=== PATIENT | female | born 1995 | race Caucasian/White ===

== ENCOUNTER 2022-09-29 12:46 | Observation (INO) ==
[2022-09-29 13:37] LABS: Basophils # (auto) 0.04 K/uL (0-0.2); Basophils % (auto) 0.5 %; Eosinophils # (auto) 0.09 K/uL (0-0.50); Eosinophils % (auto) 1.1 %; Hematocrit (blood only) 38.6 % (37.0-47.0); Hemoglobin 12.9 g/dl (12.0-16.0); Immature Granulocytes # (auto) 0.03 K/uL (0.01-0.20); Immature Granulocytes % (auto) 0.4 %; Lymphocytes # (auto) 2.29 K/uL (1.2-3.4); Lymphocytes % (auto) 28.2 %; Mean Corpuscular Hgb Conc 33.4 g/dL (32.0-36.0); Mean Corpuscular Volume 77.7 fL (80.0-100.0); Mean Platelet Volume 10.5 fL (9.4-12.4); Monocytes # (auto) 0.66 K/uL (0.11-0.59); Monocytes % (auto) 8.1 %; Neutrophils % (auto) 61.7 %; Platelet Count 224 K/uL (130-400); RDW Coefficient of Variation 13.1 % (11.5-14.5); RDW Standard Deviation 36.9 fL (36.4-46.3); Red Blood Count 4.97 M/uL (4.20-5.40); White Blood Count 8.11 K/ul (4.8-10.8)
[2022-09-29 13:54] LABS: Albumin Globulin Ratio 1.4 (0.9-2); Albumin Level 4.2 gm/dl (3.4-5.0); BUN Creatinine Ratio 9.7 (10-20); Bilirubin,Total 0.5 mg/dl (0.2-1.0); Calcium 9.2 mg/dl (8.6-10.3); Creatinine Clr Calc Pharmacy 124.6 ml/min; Est GFR (African American) 145.3 ml/min; Est GFR (Non-African American) 125.3 ml/min; Potassium 4.1 mmol/L (3.5-5.1); Total Protein 7.2 gm/dl (6.0-8.3)
--- NOTE | 2022-09-29 14:51 | Emergency Department Note ---
Impression & Plan Acute cholecystitis ADMIT ED Provider Note HPI: The patient is a 27-year-old female who presents emergency department with a chief complaint of epigastric abdominal pain that radiates to her back. Patient states she was seen here in the ED yesterday, ultimately diagnosed with acute cholecystitis following CT imaging, patient states she was evaluated by general surgery, Dr. Barbosa, declined surgery at that time and stated that she needed to speak to her professors about missing certain exams before she was admitted to the hospital. Patient tells me she did this overnight and continues to have discomfort therefore she checked in today for evaluation for surgery. On arrival here to the ED the patient is hemodynamically stable, she is in no acute distress on my initial assessment. ROS: - Per HPI *Outpatient medications and allergy history reviewed. *Pertinent external medical records reviewed. PE: General: Alert HEENT: Normocephalic, trachea midline Eyes: Extraocular eye movement is intact, no scleral erythema Pulmonary: Clear to auscultation bilaterally, no wheezing Cardio: Regular rate and rhythm GI: Abdomen is soft to palpation, there is tenderness in the epigastrium and right upper quadrant on palpation : No suprapubic tenderness MSK: No evidence of trauma or malformation of the extremities, no edema Skin: No evidence of rash Neuro: Alert, no focal deficits Psychiatric: Cooperative quality technician: (As interpreted by myself): - An order was placed for continuous cardiac monitoring - Patient was noted to be in sinus rhythm with a rate of 80 Differential Diagnosis: Acute cholecystitis, gastroenteritis, peptic ulcer, a cute gastritis, acute pancreatitis, amongst other potential pathologies. Medical Decision Making: Patient presented to the emergency department for reevaluation a day after being diagnosed with acute cholecystitis. Lab work was obtained and reviewed, no transaminitis, bilirubin is within normal limits. Patient does have tenderness on my exam, CT imaging from yesterday was reviewed and did show concerning findings for acute cholecystitis. I discussed the case with the on-call surgery midlevel provider, Vanessa Huber, and the patient was evaluated at the bedside. Determination was made to take the patient to the operating room and patient agreed. Patient was transferred to the operating room in stable condition under the service of Dr. Haresh Villasenor for operative management of acute cholecystitis and definitive care. Consultants: General surgery, Dr. Villasenor Diagnosis: 1. Acute cholecystitis 2. Abdominal pain, acute Disposition: Admission to General surgery Bo Douglass DO Emergency Medicine Past Med/Surg History Social History Smoking Status: Never smoker Second Hand Exposure: No; Do You Dip or Chew Tobacco: No; Tobacco Cessation Education Requested by Patient: No Hx Alcohol Use: No Hx Substance Use: No Preferred Language: Amharic Communication Ability: Effective Crew Truck Driver Required: No Beliefs That Will Affect Care: None Current Living Situation: Spouse Other Information That Helps Us Care for You: No Feels Safe at Home: Yes Safety Concerns: Feels Safe At This Time Allergies Allergies Allergy/AdvReac Type Severity Reaction Status Date / Time No Known Allergies Allergy Unverified 09/28/22 08:21 Home Meds Home Medications Medication Instructions Recorded Confirmed No Known Home Medications 09/28/22 09/28/22 Results & Data (ED) Vital Signs Vital Signs - 24 hr 09/29/22 12:57 09/29/22 15:55 Temperature 36.6 C 37 C Temperature Source Temporal Artery Scan Oral Pulse Rate 89 Pulse Rate [Apical] 69 Respiratory Rate 20 20 Respiratory Effort / Characteristics Non-Labored Spontaneous Non-Labored Spontaneous Respiratory Depth Normal Normal Respiratory Pattern Regular Blood Pressure 118/81 Blood Pressure [Right Arm] 118/63 Blood Pressure Mean 93 Blood Pressure Mean [Right Arm] 81 Blood Pressure Position [Right Arm] Lying Pulse Oximetry 100 100 Oxygen Delivery Method Room Air Room Air Sepsis New/Unexplained Change in Mental Status N/A Sepsis Action Taken by Nursing No Action Required Laboratory Data 09/29/22 13:11 09/29/22 13:11 Lab Results 09/29/22 09/29/22 09/29/22 Range/Units 13:11 13:11 14:45 WBC 8.11 (4.8-10.8) K/ul RBC 4.97 (4.20-5.40) M/uL Hgb 12.9 (12.0-16.0) g/dl Hct 38.6 (37.0-47.0) % MCV 77.7 L (80.0-100.0) fL MCH 26.0 (25.0-34.0) pg MCHC 33.4 (32.0-36.0) g/dL RDW Std Deviation 36.9 (36.4-46.3) fL RDW Coeff of [place] 13.1 (11.5-14.5) % Plt Count 224 (130-400) K/uL MPV 10.5 (9.4-12.4) fL Immature Gran % (Auto) 0.4 % Neut % (Auto) 61.7 % Lymph % (Auto) 28.2 % [place] % (Auto) 8.1 % Eos % (Auto) 1.1 % Baso % (Auto) 0.5 % Neut # (Auto) 5.00 (1.40-6.50) K/uL Lymph # (Auto) 2.29 (1.2-3.4) K/uL [place] # (Auto) 0.66 H (0.11-0.59) K/uL Eos # (Auto) 0.09 (0-0.50) K/uL Baso # (Auto) 0.04 (0-0.2) K/uL Immature Gran # (Auto) 0.03 (0.01-0.20) K/uL Sodium 136 (136-145) mmol/L Potassium 4.1 (3.5-5.1) mmol/L Chloride 105 (98-107) mmol/L Carbon Dioxide 24 (21-32) mmol/L Anion Gap 7 (3-11) BUN 6 (6-23) mg/dl Creatinine 0.62 (0.6-1.2) mg/dl Est Cr Clr Drug Dosing 124.6 ml/min Est GFR ( Amer) 145.3 ml/min Est GFR (Non-Af Amer) 125.3 ml/min BUN/Creatinine Ratio 9.7 L (10-20) Glucose 89 (70-99(Fasting)) mg/dl Calcium 9.2 (8.6-10.3) mg/dl Total Bilirubin 0.5 (0.2-1.0) mg/dl AST 15 (13-39) U/L ALT 11 (7-52) U/L Alkaline Phosphatase 61 (34-104) U/L Total Protein 7.2 (6.0-8.3) gm/dl Albumin 4.2 (3.4-5.0) gm/dl Globulin 3.0 (2.5-4.0) gm/dl Albumin/Globulin Ratio 1.4 (0.9-2) Lipase 24 (11-82) U/L Urine Color Yellow Urine Appearance Clear (Clear) Urine pH 7.0 (4.5-7.5) Ur Specific [place] 1.017 (1.000-1.030) Urine Protein Negative (Negative) Urine Glucose (UA) Negative (Negative) Urine Ketones Trace H (Negative) Urine Blood Negative (Negative) Urine Nitrite Negative (Negative) Urine Bilirubin Negative (Negative) Urine Urobilinogen Negative (Negative) Ur Leukocyte Esterase Trace H (Negative) Urine WBC (Auto) 1-5 (0-5) /hpf Urine RBC (Auto) 0-4 (0-4) /hpf U Hyaline Cast (Auto) 1-5 (0-5) /lpf U Epithel Cells (Auto) >30 H (0-5) /lpf Urine Bacteria (Auto) 1+ H (Negative) Urine Test (Negative) SARS-CoV-2, RNA, NAAT (NEGATIVE) 09/29/22 09/29/22 Range/Units 14:55 15:02 WBC (4.8-10.8) K/ul RBC (4.20-5.40) M/uL Hgb (12.0-16.0) g/dl Hct (37.0-47.0) % MCV (80.0-100.0) fL MCH (25.0-34.0) pg MCHC (32.0-36.0) g/dL RDW Std Deviation (36.4-46.3) fL RDW Coeff of [place] (11.5-14.5) % Plt Count (130-400) K/uL MPV (9.4-12.4) fL Immature Gran % (Auto) % Neut % (Auto) % Lymph % (Auto) % [place] % (Auto) % Eos % (Auto) % Baso % (Auto) % Neut # (Auto) (1.40-6.50) K/uL Lymph # (Auto) (1.2-3.4) K/uL [place] # (Auto) (0.11-0.59) K/uL Eos # (Auto) (0-0.50) K/uL Baso # (Auto) (0-0.2) K/uL Immature Gran # (Auto) (0.01-0.20) K/uL Sodium (136-145) mmol/L Potassium (3.5-5.1) mmol/L Chloride (98-107) mmol/L Carbon Dioxide (21-32) mmol/L Anion Gap (3-11) BUN (6-23) mg/dl Creatinine (0.6-1.2) mg/dl Est Cr Clr Drug Dosing ml/min Est GFR ( Amer) ml/min Est GFR (Non-Af Amer) ml/min BUN/Creatinine Ratio (10-20) Glucose (70-99(Fasting)) mg/dl Calcium (8.6-10.3) mg/dl Total Bilirubin (0.2-1.0) mg/dl AST (13-39) U/L ALT (7-52) U/L Alkaline Phosphatase (34-104) U/L Total Protein (6.0-8.3) gm/dl Albumin (3.4-5.0) gm/dl Globulin (2.5-4.0) gm/dl Albumin/Globulin Ratio (0.9-2) Lipase (11-82) U/L Urine Color Urine Appearance (Clear) Urine pH (4.5-7.5) Ur Specific [place] (1.000-1.030) Urine Protein (Negative) Urine Glucose (UA) (Negative) Urine Ketones (Negative) Urine Blood (Negative) Urine Nitrite (Negative) Urine Bilirubin (Negative) Urine Urobilinogen (Negative) Ur Leukocyte Esterase (Negative) Urine WBC (Auto) (0-5) /hpf Urine RBC (Auto) (0-4) /hpf U Hyaline Cast (Auto) (0-5) /lpf U Epithel Cells (Auto) (0-5) /lpf Urine Bacteria (Auto) (Negative) Urine Test Negative (Negative) SARS-CoV-2, RNA, NAAT NEGATIVE (NEGATIVE) Administered Medications Fentanyl Citrate (Fentanyl Citrate Pf 100 Mcg/2 Ml Vial) 25 mcg IV Q5M PRN PRN Reason: PACU Use Only-Pain Stop: 09/30/22 00:01 Last Admin: 09/29/22 17:42 Dose: 25 mcg Documented By: Admin: 09/29/22 17:36 Dose: 25 mcg Documented By: Admin: 09/29/22 17:31 Dose: 25 mcg Documented By: EV Discontinued Medications Bupivacaine HCl (Bupivacaine 0.5 % 5 Mg/1 Ml Mpf 30ml Vial) Confirm Administered Dose 30 ml .ROUTE .STK-MED ONE Stop: 09/29/22 15:57 Last Admin: 09/29/22 16:47 Dose: Not Given Documented By: AFSHAN Bupivacaine HCl/Epinephrine Bitart (Bupivacaine/Epinephrine 0.25% 1:200,000 30 Ml Vial) Confirm Administered Dose 30 ml .ROUTE .STK-MED ONE Stop: 09/29/22 16:03 Last Admin: 09/29/22 17:00 Dose: 30 ml Documented By: SM Cefazolin Sodium (Ancef 2000mg) 2,000 mg in 15 mls @ 3.75 mls/min IV PREOP ONE; Protocol Stop: 09/29/22 15:48 Last Admin: 09/29/22 16:16 Dose: 3.75 mls/min Documented By: [id number] Cefazolin Sodium (Ancef 2000mg) 2,000 mg in 15 mls @ 3.75 mls/min IV PREOP ONE; Protocol Stop: 09/29/22 16:33 Last Admin: 09/29/22 16:21 Dose: Not Given Documented By: GEOVANNY Discharge Plan Visit Data Chief Complaint: Abdominal Pain Stated Complaint: ABDOMINAL PAIN, KIDNEY STONES ED Provider: Bo Douglass Discharge Problem: Acute cholecystitis Discharge Instructions Interventions: ED Discharge Assessment Last Done: 09/29/22 15:42
[2022-09-29 15:11] LABS: Appearance Urine Clear (Clear); Bacteria Urine Automated 1+ (Negative); Bilirubin Urine Negative (Negative); Blood Urine Negative (Negative); Color Urine Yellow; Epithelial Cell Urine Auto >30 /lpf (0-5); Glucose Urine UA Negative (Negative); Ketones Urine Trace (Negative); Leukocyte Esterase Urine Trace (Negative); Nitrite Urine Negative (Negative); Protein Urine Negative (Negative); RBC Urine Automated 0-4 /hpf (0-4); Specific Gravity Urine 1.017 (1.000-1.030); Urobilinogen Urine Negative (Negative)
[2022-09-29] MEDS ORDERED: PROPOFOL IV EMULSION 10 MG/ML 20 ML VIAL IV ONE (15:37)
[2022-09-29] MEDS ORDERED: fentaNYL citrate PF 100 MCG/2 ML VIAL ONE (15:37)
[2022-09-29] MEDS ORDERED: LIDOCAINE 2% MPF LOCAL 5 ML VIAL ONE (15:37)
[2022-09-29] MEDS ORDERED: MIDAZOLAM HCL 1 MG/ML 2ML VIAL ONE (15:37)
[2022-09-29] MEDS ORDERED: ROCURONIUM BROMIDE 10 MG/ML 5 ML VIAL IV ONE (15:37)
[2022-09-29] MEDS ORDERED: ceFAZolin 2000MG 2,000 MG/15 ML SYR IV ONE ×2 (15:45→16:30)
--- NOTE | 2022-09-29 15:49 | History & Physical Report ---
Date of Service September 29, 2022 Assessment & Plan (1) Acute cholecystitis due to biliary calculus: Plan: 27-year-old female who initially presented to the emergency room yesterday with complaint of abdominal pain with associated generalized illness of body aches, chills, nausea, vomiting. CT scan with gallstone in neck of gallbladder with signs of early acute cholecystitis. Normal wbc, t. bili and lfts. Abdominal pain still present and not improving which prompted ER evaluation again. Plan: Given imaging and exam findings, again recommended proceeding with laparoscopic cholecystectomy. Discussed procedure, risks of procedure and expected recovery time. Will plan to proceed with laparoscopic cholecystomy today at earliest convenience. Will sign consent in preop Keep NPO 2 gms cefoxitin preop likely stay overnight med/surg (2) Viral syndrome: Plan Discussed with Dr. Villasenor who will evaluate patient in preop, obtain consent for surgery History of Present Illness Chief Complaint: abdominal pain Primary Care Provider: [facility] Tomeka is a 27-year-old otherwise healthy female who initially presented to the emergency room yesterday with complaint of abdominal pain that started on Thursday along with generalized aches, chills, sweats. She had a CT scan of the abdomen and pelvis which showed a gallstone in the neck of the gallbladder with signs of early acute cholecystitis. She was evaluated by Dr. Christiana Barbosa in the emergency room yesterday who recommended laparoscopic cholecystectomy however patient elected to not proceed with surgery and left the emergency room AMA last evening. She again presented to the emergency room this morning with increasing abdominal pain last evening with associated nausea but no vomiting. She is still having some generalized aches and sore throat. Her labs show no leukocytosis and liver enzymes and total bilirubin are within normal limits. She states her pain was severe this morning and took an oral pain medication but has not had anything since. She states she actually has somewhat of an appetite at this time. Denies of any difficulty urinating or blood in the urine. Allergies Allergy/AdvReac Type Severity Reaction Status Date / Time No Known Allergies Allergy Unverified 09/28/22 08:21 Home Medications Medication Instructions Recorded Confirmed Type No Known Home Medications 09/28/22 09/28/22 History Past Med/Surg History Social History Smoking Status: Never smoker Hx Alcohol Use: No Hx Substance Use: No Preferred Language: French Feels Safe at Home: Yes Review of Systems Review of Systems: All systems reviewed & are unremarkable except as noted in HPI & below Physical Exam Constitutional: WD/WN, vitals as above cooperative and comfortable; no acute distress and not ill appearing Neck: normal visual inspection and trachea midline Respiratory: normal respiratory effort, lungs clear to auscultation Cardiovascular: RRR, no murmur, no edema Gastrointestinal (Abdomen): Inspection/Auscultation: abdomen normal to inspection and + hypoactive bowel sounds; abdomen not distended and + abnormal bowel sounds Percussion/Palpation: + abdomen tender (Right upper quadrant) and abdomen soft; no guarding and abdomen not rigid Skin: no rashes, warm and dry no jaundice Psychiatric: Orientation: alert and oriented x 3 Results & Data Results & Data Vital Signs (Past 12 Hours) Vital Signs Temp Pulse Resp BP Pulse Ox O2 Del Method 09/29/22 12:57 36.6 C 89 20 118/81 100 Room Air Laboratory Results 09/29/22 09/29/22 09/29/22 Range/Units 15:02 14:45 13:11 WBC (4.8-10.8) K/ul RBC (4.20-5.40) M/uL Hgb (12.0-16.0) g/dl Hct (37.0-47.0) % MCV (80.0-100.0) fL MCH (25.0-34.0) pg MCHC (32.0-36.0) g/dL RDW Std Deviation (36.4-46.3) fL RDW Coeff of [place] (11.5-14.5) % Plt Count (130-400) K/uL MPV (9.4-12.4) fL Immature Gran % (Auto) % Neut % (Auto) % Lymph % (Auto) % [place] % (Auto) % Eos % (Auto) % Baso % (Auto) % Neut # (Auto) (1.40-6.50) K/uL Lymph # (Auto) (1.2-3.4) K/uL [place] # (Auto) (0.11-0.59) K/uL Eos # (Auto) (0-0.50) K/uL Baso # (Auto) (0-0.2) K/uL Immature Gran # (Auto) (0.01-0.20) K/uL Sodium 136 (136-145) mmol/L Potassium 4.1 (3.5-5.1) mmol/L Chloride 105 (98-107) mmol/L Carbon Dioxide 24 (21-32) mmol/L Anion Gap 7 (3-11) BUN 6 (6-23) mg/dl Creatinine 0.62 (0.6-1.2) mg/dl Est Cr Clr Drug Dosing 124.6 ml/min Est GFR ( Amer) 145.3 ml/min Est GFR (Non-Af Amer) 125.3 ml/min BUN/Creatinine Ratio 9.7 L (10-20) Glucose 89 (70-99(Fasting)) mg/dl Calcium 9.2 (8.6-10.3) mg/dl Total Bilirubin 0.5 (0.2-1.0) mg/dl AST 15 (13-39) U/L ALT 11 (7-52) U/L Alkaline Phosphatase 61 (34-104) U/L Total Protein 7.2 (6.0-8.3) gm/dl Albumin 4.2 (3.4-5.0) gm/dl Globulin 3.0 (2.5-4.0) gm/dl Albumin/Globulin Ratio 1.4 (0.9-2) Lipase 24 (11-82) U/L Urine Color Yellow Urine Appearance Clear (Clear) Urine pH 7.0 (4.5-7.5) Ur Specific [place] 1.017 (1.000-1.030) Urine Protein Negative (Negative) Urine Glucose (UA) Negative (Negative) Urine Ketones Trace H (Negative) Urine Blood Negative (Negative) Urine Nitrite Negative (Negative) Urine Bilirubin Negative (Negative) Urine Urobilinogen Negative (Negative) Ur Leukocyte Esterase Trace H (Negative) Urine WBC (Auto) 1-5 (0-5) /hpf Urine RBC (Auto) 0-4 (0-4) /hpf U Hyaline Cast (Auto) 1-5 (0-5) /lpf U Epithel Cells (Auto) >30 H (0-5) /lpf Urine Bacteria (Auto) 1+ H (Negative) SARS-CoV-2, RNA, NAAT Pending 09/29/22 Range/Units 13:11 WBC 8.11 (4.8-10.8) K/ul RBC 4.97 (4.20-5.40) M/uL Hgb 12.9 (12.0-16.0) g/dl Hct 38.6 (37.0-47.0) % MCV 77.7 L (80.0-100.0) fL MCH 26.0 (25.0-34.0) pg MCHC 33.4 (32.0-36.0) g/dL RDW Std Deviation 36.9 (36.4-46.3) fL RDW Coeff of [place] 13.1 (11.5-14.5) % Plt Count 224 (130-400) K/uL MPV 10.5 (9.4-12.4) fL Immature Gran % (Auto) 0.4 % Neut % (Auto) 61.7 % Lymph % (Auto) 28.2 % [place] % (Auto) 8.1 % Eos % (Auto) 1.1 % Baso % (Auto) 0.5 % Neut # (Auto) 5.00 (1.40-6.50) K/uL Lymph # (Auto) 2.29 (1.2-3.4) K/uL [place] # (Auto) 0.66 H (0.11-0.59) K/uL Eos # (Auto) 0.09 (0-0.50) K/uL Baso # (Auto) 0.04 (0-0.2) K/uL Immature Gran # (Auto) 0.03 (0.01-0.20) K/uL Sodium (136-145) mmol/L Potassium (3.5-5.1) mmol/L Chloride (98-107) mmol/L Carbon Dioxide (21-32) mmol/L Anion Gap (3-11) BUN (6-23) mg/dl Creatinine (0.6-1.2) mg/dl Est Cr Clr Drug Dosing ml/min Est GFR ( Amer) ml/min Est GFR (Non-Af Amer) ml/min BUN/Creatinine Ratio (10-20) Glucose (70-99(Fasting)) mg/dl Calcium (8.6-10.3) mg/dl Total Bilirubin (0.2-1.0) mg/dl AST (13-39) U/L ALT (7-52) U/L Alkaline Phosphatase (34-104) U/L Total Protein (6.0-8.3) gm/dl Albumin (3.4-5.0) gm/dl Globulin (2.5-4.0) gm/dl Albumin/Globulin Ratio (0.9-2) Lipase (11-82) U/L Urine Color Urine Appearance (Clear) Urine pH (4.5-7.5) Ur Specific [place] (1.000-1.030) Urine Protein (Negative) Urine Glucose (UA) (Negative) Urine Ketones (Negative) Urine Blood (Negative) Urine Nitrite (Negative) Urine Bilirubin (Negative) Urine Urobilinogen (Negative) Ur Leukocyte Esterase (Negative) Urine WBC (Auto) (0-5) /hpf Urine RBC (Auto) (0-4) /hpf U Hyaline Cast (Auto) (0-5) /lpf U Epithel Cells (Auto) (0-5) /lpf Urine Bacteria (Auto) (Negative) SARS-CoV-2, RNA, NAAT Diagnostic Findings ABDOMEN AND PELVIS CT WITH IV CONTRAST CT DOSE: 291.92 mGy.cm HISTORY: Acute generalized abdominal pain with nausea and vomiting abd pain, n/v TECHNIQUE: Multiaxial CT images of the abdomen and pelvis were performed following the IV administration of 87 cc of Optiray, A dose lowering technique was utilized adhering to the principles of ALARA. COMPARISON STUDY: None. FINDINGS: Clear lung bases. No pneumatosis or pneumoperitoneum. Unremarkable spleen, pancreas and adrenal glands. Periportal edema. The liver measures in the upper limits of normal in size. No hepatic mass identified. Patent portal vein. The gallbladder is distended with mild wall thickening and trace pericholecystic infiltration. Gallstone noted within the gallbladder neck. No biliary ductal dilation. Mildly prominent periportal lymph nodes are likely reactive. Unremarkable kidneys. No hydronephrosis. Urinary bladder wall thickening with partial distention. Heterogeneous enhancement of the retroflexed uterus of unknown significance. Involuting right ovarian follicle, 2 cm. Small amount of free pelvic fluid. Aorta and IVC are unremarkable. No bowel obstruction or bowel wall thickening. Limited study without the use of enteric contrast. Mild fecal retention. The appendix is not definitively seen. Unremarkable soft tissues. No acute fracture. IMPRESSION: 1. The gallbladder is mildly distended with slightly thickened wall and trace pericholecystic edema with a stone present within the gallbladder neck. Findings are suspicious for acute cholecystitis. Correlation with right upper quadrant ultrasound recommended. 2. No bowel obstruction or bowel wall thickening. 3. Limited study without the use of enteric contrast. The appendix is not definitively seen. 4. Involuting right ovarian follicle with small amount of likely physiologic free pelvic fluid. Code Status & VTE Plan VTE Prophylaxis Plan VTE Prophylaxis will be ordered: Yes Supervising Physician Co-Signing Physician Notes I have seen and examined the patient personally and agree with the above assessment and plan. In brief, she has acute cholecystitis. I discussed the risks and benefits of laparoscopic cholecystectomy with her and her . All the questions were answered, and they are agreeable to proceed. She has signed consent. We will take her to the operating room at the earliest convenience.
[2022-09-29] MEDS ORDERED: BUPIVACAINE 0.5 % 5 MG/1 ML MPF 30ML VIAL ONE (15:56)
[2022-09-29] MEDS ORDERED: PROMETHAZINE HCL 12.5 MG in SODIUM CHLORIDE 0.9% 50 ML IV PRN ×2 (16:00→18:37)
[2022-09-29] MEDS ORDERED: ATROPINE SULFATE 0.1 MG/ML 10ML SYR IV PRN (16:00)
[2022-09-29] MEDS ORDERED: MEPERIDINE HCL 25 MG/ML CARP/VIAL IV PRN (16:00)
[2022-09-29] MEDS ORDERED: MoRPHine SULFATE 10 MG/ML CARP/VIAL IV PRN (16:00)
[2022-09-29] MEDS ORDERED: ONDANSETRON INJ 2 MG/ML 2 ML VIAL IV PRN ×2 (16:00→18:37)
[2022-09-29] MEDS ORDERED: ePHEDrine sulfate 50 MG/ML AMP IV PRN (16:00)
[2022-09-29 16:01] LABS: Pregnancy Test, Urine Negative (Negative)
--- NOTE | 2022-09-29 16:01 | Anesthesiology Consultation ---
Date of Service September 29, 2022 Assessment & Plan Chart Review Chart Review: Acceptable Risk for Surgery Consults Requested none ASA [id number] Proposed Anesthesia Anesthesia Type: General Risk / Benefits Reviewed With: PT / POA / Parent / Guardian, Accepts Plan and Informed Consent Obtained History Surgery Operation Date: 09/29/22 13:15 Proposed Procedures p Laparoscopic Cholecystectomy - Haresh Villasenor MD Height/Weight Height: 5 ft 6.14 in Weight: 56.9 kg Allergies Allergy/AdvReac Type Severity Reaction Status Date / Time No Known Allergies Allergy Unverified 09/28/22 08:21 Medications Home Medications Medication Instructions Recorded Confirmed Last Taken No Known Home Medications 09/28/22 09/28/22 Unknown NPO Date Last Intake of Fluids: 09/28/22 Time Last Intake of Fluids: 21:00 Date Last Intake of Solids: 09/28/22 Time Last Intake of Solids: 21:00 Exercise / Class Metabolic Activity 1 > 8 Run/Swim/Ski/Tennis Past Anesthesia History No Hx of Anesthesia Complications History of PONV No Hx of PONV Social History Smoking Status: Never smoker Hx Alcohol Use: No Hx Substance Use: No Review of Systems ROS Unobtainable: All systems reviewed & are unremarkable except as noted in HPI & below Physical Exam Vital Signs Last Vital Signs Temp 36.6 C 09/29/22 12:57 Pulse 89 09/29/22 12:57 Resp 20 09/29/22 12:57 BP 118/81 09/29/22 12:57 Pulse Ox 100 09/29/22 12:57 O2 Del Method Room Air 09/29/22 12:57 ENMT Thyromental Distance: > or= 3.5 Finger Breadths Mallampati Class: I Respiratory normal respiratory effort Auscultation: lungs clear to auscultation bilaterally Cardiovascular Rate/Rhythm: regular rate and regular rhythm Psychiatric Orientation: alert and oriented x 3 Testing Laboratory Results 09/29/22 13:11 09/29/22 13:11 Urine Color Yellow 09/29/22 14:45 Urine Appearance Clear (Clear) 09/29/22 14:45 Urine pH 7.0 (4.5-7.5) 09/29/22 14:45 Ur Specific [place] 1.017 (1.000-1.030) 09/29/22 14:45 Urine Protein Negative (Negative) 09/29/22 14:45 Urine Glucose (UA) Negative (Negative) 09/29/22 14:45 Urine Ketones Trace (Negative) H 09/29/22 14:45 Urine Nitrite Negative (Negative) 09/29/22 14:45 Ur Leukocyte Esterase Trace (Negative) H 09/29/22 14:45 Urine WBC (Auto) 1-5 /hpf (0-5) 09/29/22 14:45 Urine RBC (Auto) 0-4 /hpf (0-4) 09/29/22 14:45 U Hyaline Cast (Auto) 1-5 /lpf (0-5) 09/29/22 14:45 U Epithel Cells (Auto) >30 /lpf (0-5) H 09/29/22 14:45 Urine Bacteria (Auto) 1+ (Negative) H 09/29/22 14:45 09/29/22 14:55 Urine Test Pending
[2022-09-29] MEDS ORDERED: BUPIVACAINE/EPINEPHRINE 0.25% 1:200,000 30 ML VIAL ONE (16:02)
--- NOTE | 2022-09-29 16:13 | History & Physical Bridge Note ---
Date of Service September 29, 2022 History & Physical Bridge Note I have examined the patient, reviewed the History & Physical and in the interval since the performance of the History & Physical I have noted the following changes of clinical significance: no changes noted
[2022-09-29] MEDS ORDERED: ONDANSETRON INJ 2 MG/ML 2 ML VIAL ONE (16:46)
[2022-09-29] MEDS ORDERED: DEXAMETHASONE SOD INJ 4 MG/ML VIAL ONE (16:46)
[2022-09-29] MEDS ORDERED: ACETAMINOPHEN 1000 MG/100 ML IV IV ONE (16:51)
[2022-09-29] MEDS ORDERED: GLYCOPYRROLATE 0.2 MG/ML VIAL ONE (16:54)
[2022-09-29] MEDS ORDERED: NEOSTIGMINE METHYLSULFATE 1 MG/ML 10ML VIAL ONE (16:54)
[2022-09-29] MEDS ORDERED: KETOROLAC 30 MG/ML VIAL ONE (17:00)
--- NOTE | 2022-09-29 17:17 | Post Operative Brief Note ---
Immediate Post Op Note v1 Date of Surgery September 29, 2022 Pre & Post Diagnosis Operation Date: 09/29/22 13:15 Pre-Op Diagnosis: Acute Cholecystitis Post-Op Diagnosis: Acute Cholecystitis I identified the patient and participated in the time-out.: Yes Procedure Operation Date: 09/29/22 13:15 Actual Procedures p Laparoscopic Cholecystectomy(Not Applicable) - Haresh Villasenor MD Surgeon Haresh Villasenor MD Inventory Control Manager None Estimated Blood Loss 5 Findings Consistent with Post-Op Diagnosis
--- NOTE | 2022-09-29 17:19 | Operative Report ---
Post Operative Report Pre & Post Diagnosis Operation Date: 09/29/22 13:15 Pre-Op Diagnosis: Acute Cholecystitis Post-Op Diagnosis: Acute Cholecystitis I identified the patient and participated in the time-out.: Yes Procedure Operation Date: 09/29/22 13:15 Actual Procedures p Laparoscopic Cholecystectomy(Not Applicable) - Haresh Villasenor MD Surgeon Haresh Villasenor MD Carder Blankets None Estimated Blood Loss 5 Findings Consistent with Post-Op Diagnosis Acute cholecystitis with severely distended gallbladder and hydrops Specimens Gallbladder Drains None Anesthesia Type General Complications No immediate complications Description of Procedure The patient was taken to the operating room, and placed supine on the operating table. A timeout was performed, perioperative antibiotics were administered, SCD boots were placed. After adequate anesthesia and analgesia was obtained, the abdomen was prepped and draped in the normal sterile fashion. Local anesthetic was injected into and around the proposed incision sites. An incision was made with a 15 blade scalpel in the supraumbilical region and carried down to the level of the fascia. The fascia was grasped with a trach hook, and a varies needle was used to enter the abdominal cavity. The abdomen was insufflated to a pressure of 15 mmHg, and a 11 mm trocar was placed in this location. A 10 mm, 30 degree laparoscope was placed into the abdominal cavity, and the abdomen was surveyed. The gallbladder appeared markedly distended and taut. It was extremely enlarged. Two 5 mm trochars were placed along the right costal margin, and one 5 mm trocar was placed in the subxiphoid region under direct visualization. The gallbladder was drained with an 18-gauge aspiration needle. Clear fluid was returned. The gallbladder was grasped and retracted cephalad and laterally, exposing the triangle of Calot. Dissection began in the triangle with a combination of blunt dissection with the [place] dissector, and judicious use of the hook cautery. The cystic duct and cystic artery were dissected free circumferentially, and a critical view of safety was obtained. The cystic duct and cystic artery were clipped and transected, and the gallbladder was removed from the gallbladder fossa with the hook cautery. The camera was switched to a 5 mm, the gallbladder was placed in an Endo Catch bag, and removed via the supraumbilical port site. The camera was switched back to the 10 mm camera, and the abdomen was surveyed again. Hemostasis was checked and attended, and was excellent. The abdomen was copiously irrigated and suctioned free. Again hemostasis was checked and was excellent. All trochars were removed under direct visualization. The abdomen was desufflated. The fascia in the 11 mm port site was closed with a 0 Vicryl suture. The skin was closed with a running 4-0 Monocryl subcuticular stitch. Dermabond was applied. The patient tolerated the procedure without complication, and was transferred in stable condition to the PACU. All instrument, needle, and sponge counts were correct at the end of the case. I attest to the content of the Intraoperative Record and any orders documented therein. Any exceptions are noted below.
[2022-09-29] MEDS: fentaNYL citrate PF 100 MCG/2 ML VIAL IV PRN ×3 (17:31→17:42)
--- NOTE | 2022-09-29 17:58 | Anesthesiology Progress Note ---
Date of Service September 29, 2022 Anesthesia Post Procedure Vital Signs Vital Signs: Temp Pulse Pulse Resp BP BP Pulse Ox 09/29/22 17:50 66 13 107/58 L 100 09/29/22 17:40 64 14 108/58 L 100 09/29/22 17:30 97 H 18 121/58 L 100 09/29/22 17:24 36.6 C 115 H 16 119/54 L 100 09/29/22 15:55 37 C 69 20 118/63 100 09/29/22 12:57 36.6 C 89 20 118/81 100 O2 Del Method O2 Flow Rate 09/29/22 17:50 Oxymask 5 09/29/22 17:40 Oxymask 9 09/29/22 17:30 Oxymask 9 09/29/22 17:24 Oxymask 9 09/29/22 15:55 Room Air 09/29/22 12:57 Room Air Pain Intensity Abdomen: Pain Intensity: 5 Transfer of Care Handoff Completed per policy Notes Mental Status: alert / awake / arousable Patient Amnestic to Procedure: Yes Nausea / Vomiting: adequately controlled Pain: adequately controlled Airway Patency, RR, SpO2: stable & adequate BP & HR: stable & adequate Hydration State: stable & adequate Anesthetic Complications: no major complications apparent and Pt Satisfied with anesthetic care
[2022-09-29] MEDS ORDERED: diphenhydrAMINE Capsule 25 MG CAP PO PRN (18:37)
[2022-09-29] MEDS ORDERED: KETOROLAC 30 MG/ML VIAL IV PRN (18:37)
[2022-09-29] MEDS ORDERED: oxyCODONE/ACETAMINOPHEN 5mg/325mg TAB PO PRN (18:37)
[2022-09-29] MEDS ORDERED: MoRPHine SULFATE 2 MG/ML CARP IV PRN (18:37)
[2022-09-30] MEDS ORDERED: ENOXAPARIN INJ 40 MG/0.4 ML SYR SQ SCH (08:00)
[2022-09-30] MEDS ORDERED: COUGH DROP (SUGAR FREE) LOZ 24 LOZ/1 BOX BUCCAL PRN (11:44)
[2022-09-30] MEDS ORDERED: CHLORASEPTIC 1.4% SOLN 180 ML BTL MT PRN (11:44)
[2022-09-30] MEDS ORDERED: IBUPROFEN 600 MG TAB PO PRN (11:46)
[2022-09-30] MEDS ORDERED: ACETAMINOPHEN 325 MG TAB PO PRN (11:46)
--- NOTE | 2022-09-30 12:14 | Surgery Progress Note ---
Date of Service September 30, 2022 Assessment & Plan (1) Acute cholecystitis due to biliary calculus: (2) Viral syndrome: Plan POD # 1 s/p lap trino avss - mild postop pain, controlled, severe with coughing - +Sore throat - tolerated advanced diet Plan: Discharge home today discharge instructions reviewed rx for percocet prn pain sent to pharmacy follow-up surgery office in [address] Villasenor has seen patient and agrees with above. Admission and Anticipated Discharge Date Admission Date: September 29, 2022 Subjective severe preop pain resolved minimal postop pain at incisions, pain increases with coughing felt feverish this morning sore throat and coughing no chest pain or shortness of breath tolerating clears ambulated hallway urinating without difficulty Physical Exam Constitutional: WD/WN, vitals as above cooperative and comfortable; no acute distress and not ill appearing Neck: normal visual inspection and trachea midline Respiratory: normal respiratory effort; no respiratory distress, no labored breathing and no retractions Gastrointestinal (Abdomen): Inspection/Auscultation: abdomen normal to inspection and + abdominal surgical incision (clean/dry/intact with dermabond); abdomen not distended Percussion/Palpation: + abdomen tender (at incision sites) and abdomen soft; no guarding and abdomen not rigid Skin: no rashes, warm and dry no jaundice Psychiatric: Orientation: alert and oriented x 3 Lymphatic: no cervical or axillary lymphadenopathy Results & Data Vital Signs (Past 12 Hours) Vital Signs Temp Pulse Resp BP Pulse Ox O2 Del Method 09/30/22 11:49 37.2 C 72 16 110/70 100 Room Air 09/30/22 08:34 37 C 78 16 104/61 98 Room Air 09/30/22 04:10 37.2 C 78 16 97/58 L 98 Room Air Laboratory Results 09/29/22 09/29/22 09/29/22 Range/Units 15:02 14:55 14:45 WBC (4.8-10.8) K/ul RBC (4.20-5.40) M/uL Hgb (12.0-16.0) g/dl Hct (37.0-47.0) % MCV (80.0-100.0) fL MCH (25.0-34.0) pg MCHC (32.0-36.0) g/dL RDW Std Deviation (36.4-46.3) fL RDW Coeff of [place] (11.5-14.5) % Plt Count (130-400) K/uL MPV (9.4-12.4) fL Immature Gran % (Auto) % Neut % (Auto) % Lymph % (Auto) % [place] % (Auto) % Eos % (Auto) % Baso % (Auto) % Neut # (Auto) (1.40-6.50) K/uL Lymph # (Auto) (1.2-3.4) K/uL [place] # (Auto) (0.11-0.59) K/uL Eos # (Auto) (0-0.50) K/uL Baso # (Auto) (0-0.2) K/uL Immature Gran # (Auto) (0.01-0.20) K/uL Sodium (136-145) mmol/L Potassium (3.5-5.1) mmol/L Chloride (98-107) mmol/L Carbon Dioxide (21-32) mmol/L Anion Gap (3-11) BUN (6-23) mg/dl Creatinine (0.6-1.2) mg/dl Est Cr Clr Drug Dosing ml/min Est GFR ( Amer) ml/min Est GFR (Non-Af Amer) ml/min BUN/Creatinine Ratio (10-20) Glucose (70-99(Fasting)) mg/dl Calcium (8.6-10.3) mg/dl Total Bilirubin (0.2-1.0) mg/dl AST (13-39) U/L ALT (7-52) U/L Alkaline Phosphatase (34-104) U/L Total Protein (6.0-8.3) gm/dl Albumin (3.4-5.0) gm/dl Globulin (2.5-4.0) gm/dl Albumin/Globulin Ratio (0.9-2) Lipase (11-82) U/L Urine Color Yellow Urine Appearance Clear (Clear) Urine pH 7.0 (4.5-7.5) Ur Specific [place] 1.017 (1.000-1.030) Urine Protein Negative (Negative) Urine Glucose (UA) Negative (Negative) Urine Ketones Trace H (Negative) Urine Blood Negative (Negative) Urine Nitrite Negative (Negative) Urine Bilirubin Negative (Negative) Urine Urobilinogen Negative (Negative) Ur Leukocyte Esterase Trace H (Negative) Urine WBC (Auto) 1-5 (0-5) /hpf Urine RBC (Auto) 0-4 (0-4) /hpf U Hyaline Cast (Auto) 1-5 (0-5) /lpf U Epithel Cells (Auto) >30 H (0-5) /lpf Urine Bacteria (Auto) 1+ H (Negative) Urine Test Negative (Negative) SARS-CoV-2, RNA, NAAT NEGATIVE (NEGATIVE) 09/29/22 09/29/22 Range/Units 13:11 13:11 WBC 8.11 (4.8-10.8) K/ul RBC 4.97 (4.20-5.40) M/uL Hgb 12.9 (12.0-16.0) g/dl Hct 38.6 (37.0-47.0) % MCV 77.7 L (80.0-100.0) fL MCH 26.0 (25.0-34.0) pg MCHC 33.4 (32.0-36.0) g/dL RDW Std Deviation 36.9 (36.4-46.3) fL RDW Coeff of [place] 13.1 (11.5-14.5) % Plt Count 224 (130-400) K/uL MPV 10.5 (9.4-12.4) fL Immature Gran % (Auto) 0.4 % Neut % (Auto) 61.7 % Lymph % (Auto) 28.2 % [place] % (Auto) 8.1 % Eos % (Auto) 1.1 % Baso % (Auto) 0.5 % Neut # (Auto) 5.00 (1.40-6.50) K/uL Lymph # (Auto) 2.29 (1.2-3.4) K/uL [place]ie # (Auto) 0.66 H (0.11-0.59) K/uL Eos # (Auto) 0.09 (0-0.50) K/uL Baso # (Auto) 0.04 (0-0.2) K/uL Immature Gran # (Auto) 0.03 (0.01-0.20) K/uL Sodium 136 (136-145) mmol/L Potassium 4.1 (3.5-5.1) mmol/L Chloride 105 (98-107) mmol/L Carbon Dioxide 24 (21-32) mmol/L Anion Gap 7 (3-11) BUN 6 (6-23) mg/dl Creatinine 0.62 (0.6-1.2) mg/dl Est Cr Clr Drug Dosing 124.6 ml/min Est GFR ( Amer) 145.3 ml/min Est GFR (Non-Af Amer) 125.3 ml/min BUN/Creatinine Ratio 9.7 L (10-20) Glucose 89 (70-99(Fasting)) mg/dl Calcium 9.2 (8.6-10.3) mg/dl Total Bilirubin 0.5 (0.2-1.0) mg/dl AST 15 (13-39) U/L ALT 11 (7-52) U/L Alkaline Phosphatase 61 (34-104) U/L Total Protein 7.2 (6.0-8.3) gm/dl Albumin 4.2 (3.4-5.0) gm/dl Globulin 3.0 (2.5-4.0) gm/dl Albumin/Globulin Ratio 1.4 (0.9-2) Lipase 24 (11-82) U/L Urine Color Urine Appearance (Clear) Urine pH (4.5-7.5) Ur Specific [place] (1.000-1.030) Urine Protein (Negative) Urine Glucose (UA) (Negative) Urine Ketones (Negative) Urine Blood (Negative) Urine Nitrite (Negative) Urine Bilirubin (Negative) Urine Urobilinogen (Negative) Ur Leukocyte Esterase (Negative) Urine WBC (Auto) (0-5) /hpf Urine RBC (Auto) (0-4) /hpf U Hyaline Cast (Auto) (0-5) /lpf U Epithel Cells (Auto) (0-5) /lpf Urine Bacteria (Auto) (Negative) Urine Test (Negative) SARS-CoV-2, RNA, NAAT (NEGATIVE)
--- NOTE | 2022-10-02 18:13 | Discharge Summary ---
Date of Service October 02, 2022 Admission HPI Per Admitting Provider Tomeka is a 27-year-old otherwise healthy female who initially presented to the emergency room yesterday with complaint of abdominal pain that started on Thursday along with generalized aches, chills, sweats. She had a CT scan of the abdomen and pelvis which showed a gallstone in the neck of the gallbladder with signs of early acute cholecystitis. She was evaluated by Dr. Christiana Barbosa in the emergency room yesterday who recommended laparoscopic cholecystectomy however patient elected to not proceed with surgery and left the emergency room AMA last evening. She again presented to the emergency room this morning with increasing abdominal pain last evening with associated nausea but no vomiting. She is still having some generalized aches and sore throat. Her labs show no leukocytosis and liver enzymes and total bilirubin are within normal limits. She states her pain was severe this morning and took an oral pain medication but has not had anything since. She states she actually has somewhat of an appetite at this time. Denies of any difficulty urinating or blood in the urine. Principal Diagnosis Acute cholecystitis Discharge Data Allergies Allergy/AdvReac Type Severity Reaction Status Date / Time No Known Allergies Allergy Unverified 09/28/22 08:21 Procedures Performed Operation Date: 09/29/22 13:15 Actual Procedures p Laparoscopic Cholecystectomy(Not Applicable) - Haresh Villasenor MD Hospital Course (1) Acute cholecystitis: 27-year-old presented with acute cholecystitis. She was taken to the operating room, the details of which are dictated in a separate operative note. Postoperatively she was taken to the PACU and subsequently to the floor in stable condition. DVT prophylaxis with subcu Lovenox and SCD boots. Early ambulation and incentive spirometry was encouraged for pulmonary toilet. Pain was controlled with IV and p.o. pain medications. By the date of discharge, she was tolerating regular diet, not requiring any IV pain medications, and was discharged to home in stable condition. She will follow-up in clinic in 2 weeks. Total Time Total Time Spent Total Time Spent (In Minutes): 30 minutes Discharge Plan Discharge Items Patient Disposition: Home - Self-Care Reason For Visit: ACUTE CHOLECYSTITIS Discharge Diagnosis: acute cholecystitis viral syndrome Activity: Per Instructions section Non-emergency contact: Primary Care Provider and Surgeon Call non-emergency contact if: you have any medication questions, your pain is not controlled, your pain is worsening, you have a fever, your temperature is above 101, your wound has increased redness, your wound has increased drainage and your wound pain has increased Follow-up/Referrals: Haresh Villasenor MD [Physician] - (follow-up in 2 weeks) [facility] [Primary Care Provider] - Diet: Regular Addtl Attending Provider Instructions: Post-Surgical ~Discharge Instructions Activity Recommendations: - lifting limitation: (20 pounds for 2-3 weeks), - exercise/sex/sports limit: (nonstrenuous for 2 weeks), - driving or machine use limit: (none for 1 week or until pain free and no longer taking narcotic pain medication), - Shower/bathe limit: (may shower) Diet: - Resume previous diet SPECIAL CARE INSTRUCTIONS: - May shower. Let water run over area and pat dry. - Dermabond glue will fall off on its own, do not pick at it - Call the surgeon's office with any questions or concerns - - (ex. temperature higher than 101 degrees F, excessive bleeding or pain). MEDICATIONS: - Resume previous medications unless instructed otherwise by your surgeon. - May alternate extra strength Tylenol and Ibuprofen as needed for mild to moderate pain -650 mg Tylenol every 6 hours as needed - Ibuprofen 600 mg every 6 hours as needed (take with food) - Percocet 1 every 6 hours, as needed for moderate to severe pain - Recommend daily stool softener (Colace) while taking narcotic pain medication to prevent constipation and straining. Drink plenty of water daily. FOLLOW UP VISIT: - If not already scheduled, please call the office to schedule a two week follow-up appointment. Office number Pending Studies at Discharge: Yes (gallbladder pathology) Stand-Alone Forms: [employer], Pain - Opioid Pain Management, Work/School Release, Smoking Cessation Medications and DC Order Prescriptions: New oxycodone-acetaminophen 5-325 mg tablet 1 tab PO Q6H PRN (Reason: pain) Qty: 5 0RF No Action No Known Home Medications Discharge Orders: Discharge Order (Routine); Ordered 09/30/22 Ordered By: Vanessa Garner/Other Patient Handouts: DVT Post Op Prevention Admission Data Admit Date/Time: 09/29/22 17:21 Attending Provider: Haresh Villasenor Admit Provider: Haresh Villasenor Primary Care Provider: [facility] Other Interventions: Discharge Summary Assessment (RN) Last Done: 09/30/22 16:10
== END 2022-09-30 16:40 | disposition home or self-care (01) ==
LOC: ED 12:46 → 3W 12:46